=== PATIENT | male | born 1990 | race Caucasian/White ===

== ENCOUNTER 2024-12-25 12:03 | Outpatient (CLI) | payer BC, SELFPAY ==
--- OUTSIDE RECORDS SUMMARY | 2024-12-25 12:09 | XMS_ITS | Clinical Summary ---
[facility] Address [address] [place] [address] Care Team Providers Care Director Game Name Role Phone Provider, No Known Primary Care Provider Unavail able Allergies Active Allergy Reactions Criticality Noted Date Comments Diphenhydramine Hcl Hives,Rash Low 04/06/2017 Medications Multiple Vitamins-Minera ls (MULTIVITAMIN ADULT PO) Take by mouth. Activ e fluticasone (FLONASE) 50 MCG/ACT nasal spray 2 sprays into each nostril Daily. 1 bottle 8 Active brompheniramine -pseudoephedrin e-DM 30-2-10 MG/5ML syrup Take 5 mL by mouth 4 (Four) Times a Day As Needed for Congestion or Cough. 120 mL 9 Active Active Problems No known active problems Immunizations Immunization Administration Dates Next Due COVID-19 (PFIZER) Purple Cap Monovalent 05/29/19 21,05/07/2020 Family History Medical History Relation Name Comments No Known Problems Father Stroke Mother Relation Name Status Comments Father Alive Mother Alive Social History Tobacco Use Types Packs/Day Years Used Date Smoking Tobacco: Some Days Cigarettes Cigars Smokeless Tobacco: Never Comments:social smoker Alcohol Use Standard Drinks/Week Comments Yes 0 (1 standard drink = 0.6 oz pur e alcohol) couple drinks per week Abuse Screen Answer Date Recorded Feels Unsafe at Home or Work/School no 07/09/2024 Feels Threatened by Someone no 06/16 Does Anyone Try to Keep You From Having Contact with Others or Doing Things Outside Your Home? no 07/09/2024 Physical Signs of Abuse Present no 07/09/2024 Sex and Gender Information Value Date Recorded Sex Assigned at Not on file Legal Sex Male 12:08 PM EDT Gender Identity Not on file Sexual Orientation Not on file Last Filed Vital Signs Vital Sign Reading Time Taken Comments Blood Pressure 160/88 07/09/2024 9:53 PM EDT Pulse 74 07/09/2024 9:53 PM EDT Temperature 36.9 C (98.4 F) 07/09/2024 9:06 PM EDT Respiratory Rate 20 07/09/2024 9:53 PM EDT Oxygen Saturation 96% 07/09/2024 9:53 PM EDT Inhaled Oxygen Concentration - - Weight 90.7 kg (200 lb) 07/09/2024 9:06 PM EDT Height 185.4 cm (6' 1 ) 07/09/2024 9:06 PM EDT Body Mass Index 26.39 07/09/2024 9:06 PM EDT Plan of Treatment Health Maintenance Due Date Last Done Comments Pneumococcal Vaccine 0-49 (1 of 2 - PCV) 2008 ANNUAL PHYSICAL 05/14/2016 HEPATITIS C SCREENING 05/14/2016 INFLUENZA VACCINE 09/15/2024 01/15/2021 TDAP/TD VACCINES (3 - Td or Tdap) 06/09/2027 018, 06/02/2004 Insurance [id number] PPO Member Subscriber Plan / Payer (Ef fective 2020-Present) Name:Zach Anton Relation to Subscriber:Spouse Name:EMILIA ANTON Date of :1989 (Home) Address: [address] [place] [address] Payer ID:[id number] (NAIC) Type:Not on file Address: [facility] [id number] [employer] [place] [phone] Care Teams Director Game Relationship Specialty Start Date End Date Provider, No Known [facility] [place] [address] PCP - General 11/21/15
--- OUTSIDE RECORDS SUMMARY | 2024-12-25 12:09 | XMS_ITS | Clinical Summary ---
Author Organization [facility] Address [address] [place] [address] Care Team Providers Care Business Center Representative Name Role Phone Pcp, No Primary Care Provider Unavailabl e Allergies No known active allergies Medications ibuprofen 200 MG tablet Take 200 mg by mouth every 6 (six) hours if needed for mild pain. Active testosterone cypionate (Depo-Testostero ne) 200 MG/ML injection INJECT 1 ML EVERY WEEK FOR 30 DAYS 07/04/2021 Active Active Problems No known active problems Social History Tobacco Use Types Packs/Day Years Used Date Smoking Tobacco: Never Smokeless Tobacco: Never PHQ-2 Answer Date Recorded Patient Health Questionnaire-2 Score 0 07/07/2021 Sex and Gender Information Value Date Recorded Sex Assigned at Not on file Legal Sex Male 7:50 PM EDT Gender Identity Not on file Sexual Orientation Not on file Last Filed Vital Signs Vital Sign Reading Time Taken Comments Blood Pressure 128/77 07/16/2021 10:36 AM EDT Pulse 71 07/16/2021 10:36 AM EDT Temperature - - Respiratory Rate - - Oxygen Saturation 99% 07/16/2021 10:36 AM EDT Inhaled Oxygen Concentration - - Weight 97.1 kg (214 lb) 07/16/2021 10:36 AM EDT Height 185.4 cm (6' 1 ) 07/16/2021 10:36 AM EDT Body Mass Index 28.23 07/16/2021 10:36 AM EDT Plan of Treatment Health Maintenance Due Date Last Done Comments [facility]-Depression Screening 1990 [facility]-Infant/Child/Adol SDOH Screenings 1990 [facility]-Varicella Vaccines (1 of 2 - 13+ 2-dose series) 2002 [facility]- SDOH Screenings 04/16/2007 [facility]-Adult SDOH Screenings 04/16/2007 [facility]-Hepatitis B Vaccines (1 of 3 - 19+ 3-dose series) 2008 HPV Vaccines (1 - 3-dose SCDM series) 2016 [id number] Vaccine (4 - 2024- season) 2024 02/05/2021, 05/28/2020, 05/07/2020 [facility]-Influenza Vaccine (#1) 2024 01/15/2021 [facility]-DTaP,Tdap,and Td Vaccines (3 - Td or Tdap) 06/09/2027 06/08/2017, 06/02/2004 [facility]-Zoster Vaccines (1 of 2) 04/16/2039 [facility]-HIB Vaccines Aged Out No longer e ligible based on patient's age to complete this topic [facility]-Hepatitis A Vaccines Aged Out No longer eligible based on patient's age to complete this topic [facility]-IPV Vaccines Aged Out No longer e ligible based on patient's age to complete this topic [facility]-Pneumococcal Vaccine: Pediatrics (0 to 5 Years) and At-Risk Patients (6 to 49 Years) Aged Out No longer eligible b ased on patient's age to complete this topic [facility]-Rotavirus Vaccines Aged Out No lo nger eligible based on patient's age to complete this topic Insurance [employer] Care Teams Business Center Representative Relationship Specialty Start Date End Date Pcp, [place] [address] PCP - General Family Medicine 05/27/21
[2024-12-25 12:28] LABS: Hematocrit 46.0 % (42.0-52.0); Hemoglobin 16.4 g/dL (14.1-18.0); Immature Granulocytes % 0.4 %; Mean Corpuscular HGB Conc 35.7 g/dL (31.8-35.4); Mean Corpuscular Hemoglobin 33.0 pg (27.0-31.2); Mean Corpuscular Volume 92.6 fl (80-94); Nucleated Red Blood Cells % 0 %; Platelet Count 199 K/mm3 (142-424); Red Blood Count 4.97 M/mm3 (4.60-6.20); Red Cell Distribution Width-SD 41.1 fL; White Blood Count 5.6 K/mm3 (4.8-10.8)
[2024-12-26 08:13] LABS: Testosterone,Total 116 ng/dL (264-916)
== END 2024-12-25 23:59 | disposition home or self-care (01) ==
LOC: LAB 12:04
PROVIDERS: Visit Provider Urology
DX: R53.83 Other fatigue (principal)
CPT/HCPCS: 36415; 84270; 84403; 85025